=== PATIENT | male | born 1960 | race Hispanic/Latino ===

== ENCOUNTER 2016-10-06 00:19 | Emergency (ER) | payer MEDICAID ==
[2016-10-06 00:36] VITALS: BP 120/74; PULSE 78; TEMP 97.7; BMI 30.1
[2016-10-06 00:51] VITALS: RESP 16; O2SAT 98
--- NOTE | 2016-10-06 00:56 | ED PDOC ---
Arrival/HPI - General Chief Complaint: Back Pain Time Seen by Provider: 10/06/16 00:21 Historian: Patient - History of Present Illness Narrative History of Present Illness (Text): 10/06/16 00:53 Richie Bedolla is a 56 year old male who was brought to emergency department via EMS after being found sitting on a bench outside by police. Admits to drinking throughout the day. Pt denies suicidal or homicidal ideations. Denies any trauma or injury. Time/Duration: 1-3 hours Symptom Onset: Gradual Severity Level: Mild Activities at Onset: Light Context: Street Past Medical History - Provider Review Nursing Documentation Reviewed: Yes - Infectious Disease Hx of Infectious Diseases: None - Tetanus Immunization Tetanus Immunization: Unknown, Up to Date - Cardiac Hx Cardiac Disorders: Yes Hx Hypertension: Yes - Pulmonary Hx Respiratory Disorders: Yes Hx Asthma: Yes Hx Chronic Obstructive Pulmonary Disease (COPD): Yes - Neurological Hx Neurological Disorder: No - HEENT Hx HEENT Disorder: No - Renal Hx Renal Disorder: Yes Other/Comment: L nephrectomy 1990 - Endocrine/Metabolic Hx Endocrine Disorders: No - Hematological/Oncological Hx Blood Disorders: Yes Hx Hepatitis C: Yes - Integumentary Hx Dermatological Disorder: No - Musculoskeletal/Rheumatological Hx Musculoskeletal Disorders: No Hx Falls: No - Gastrointestinal Hx Gastrointestinal Disorders: No - Genitourinary/Gynecological Hx Genitourinary Disorders: No - Psychiatric Hx Psychophysiologic Disorder: Yes Hx Anxiety: Yes Hx Depression: Yes Hx Substance Use: No - Surgical History Hx Appendectomy: Yes Other/Comment: L nephrectomy, inguinal hernia repair - Anesthesia Hx Anesthesia: No Hx Anesthesia Reactions: No Hx Malignant Hyperthermia: No Family/Social History - Physician Review Nursing Documentation Reviewed: Yes Family/Social History: Other (nc) Smoking Status: using patc Hx Alcohol Use: Yes Hx Substance Use: No Allergies/Home Meds Allergies/Adverse Reactions: Allergies naproxen [From Naprosyn] Allergy (Verified 10/06/16 00:33) ANGIOEDEMA Home Medications: Home Meds Medication Instructions Recorded Confirmed Oxycodone HCl/Acetaminophen 1 tab PO Q8 10/06/16 10/08/16 [Percocet 10-325 mg Tablet] Review of Systems - Review of Systems Constitutional: absent: Fevers Eyes: Vision Changes Respiratory: absent: SOB, Cough Cardiovascular: absent: Chest Pain Gastrointestinal: Abdominal Pain. absent: Nausea, Vomiting Musculoskeletal: Back Pain (chronic), Neck Pain Neurological: Headache Psychiatric: absent: Suicidal Ideation Physical Exam Vital Signs Reviewed: Yes Vital Signs Temp Pulse Resp BP Pulse Ox 10/06/16 00:50 16 98 10/06/16 00:36 97.7 F 78 18 120/74 96 Temperature: Afebrile Blood Pressure: Normal Pulse: Regular Respiratory Rate: Normal Appearance: Positive for: Well-Appearing, Comfortable Pain Distress: None Mental Status: Positive for: Alert and Oriented X 3 - Systems Exam Head: Present: Atraumatic, Normocephalic Pupils: Present: PERRL Conjunctiva: Present: Normal Respiratory/Chest: Present: Clear to Auscultation, Good Air Exchange. No: Respiratory Distress, Accessory Muscle Use Cardiovascular: Present: Regular Rate and Rhythm, Normal S1, S2. No: Murmurs Abdomen: Present: Normal Bowel Sounds. No: Tenderness, Distention, Peritoneal Signs Neurological: Present: GCS=15, CN II-XII Intact, Speech Normal, Motor Func Grossly Intact, Normal Sensory Function Skin: Present: Warm, Dry, Normal Color. No: Rashes Psychiatric: Present: Alert, Oriented x 3, Normal Insight. No: Agitated, Suicidal Ideation, Homicidal Ideation, Delusional, Intoxicated Medical Decision Making ED Course and Treatment: Progress Notes: 10/06/16 00:58 Patient is ambulatory in the emergency department with a steady gait. - Scribe Statement The provider has reviewed the documentation as recorded by the Yaredibe Cherie Anand Provider Attestation: All medical record entries made by the Scribe were at my direction and personally dictated by me. I have reviewed the chart and agree that the record accurately reflects my personal performance of the history, physical exam, medical decision making, and the department course for this patient. I have also personally directed, reviewed, and agree with the discharge instructions and disposition. Disposition/Present on Arrival - Present on Arrival Any Indicators Present on Arrival: No History of DVT/PE: No History of Uncontrolled Diabetes: No Urinary Catheter: No History of Decub. Ulcer: No History Surgical Site Infection Following: None - Disposition Have Diagnosis and Disposition been Completed?: Yes Diagnosis: Homeless Disposition: HOME/ ROUTINE Disposition Time: 00:50 Condition: STABLE Additional Instructions: Please follow up with your doctor. Return to the ER for any other concerns. Referrals: [facility] at [facility] [place] [[place]] - Follow up with primary
== END 2016-10-06 01:24 | disposition home or self-care (01) ==
LOC: ED 00:19
DX: Z59.0 Homelessness (principal)

== ENCOUNTER 2017-05-26 12:47 | Emergency (ER) | payer MEDICAID ==
[2017-05-26 12:48] VITALS: BMI 22.8
[2017-05-26 13:17] VITALS: TEMP 98.1
[2017-05-26] MEDS ORDERED: Sodium Chloride 0.9% 500 ML IV STA (14:58)
[2017-05-26 15:13] VITALS: RESP 18; O2SAT 96
--- NOTE | 2017-05-26 15:16 | ED PDOC ---
Arrival/HPI - General Chief Complaint: Lower Extremity Problem/Injury Time Seen by Provider: 05/26/17 13:24 Historian: Patient - History of Present Illness Narrative History of Present Illness (Text): 05/26/17 56 yo male w/PMHx of COPD, HTN, alcohol abuse, L-spine radiculopathy, chronic lower back pain come in for evaluation of Left lower leg pain " for long time". Pt reports, for past few weeks, pain is severe , localized over left calf area, worse with weight bearing and associated with skin redness and swelling. Otherwise, pt denies fever, chills, CP, SOB, dyspnea, diaphoresis, palpitation, abd. pain, B/V, denies known trauma or injury, denies weakness, sensory or vascular deficits to B/L lEs. Ambulate to ED w/assistance of cane, not in any apparent distress. Past Medical History - Provider Review Nursing Documentation Reviewed: Yes - Travel History Have you recently traveled outside [place] w/in the past 3 mons?: No - Infectious Disease Hx of Infectious Diseases: None - Tetanus Immunization Tetanus Immunization: Unknown - Cardiac Hx Cardiac Disorders: Yes Hx Hypertension: Yes - Pulmonary Hx Respiratory Disorders: Yes Hx Asthma: Yes Hx Chronic Obstructive Pulmonary Disease (COPD): Yes - Neurological Hx Neurological Disorder: No - HEENT Hx HEENT Disorder: No - Renal Hx Renal Disorder: Yes Other/Comment: L nephrectomy 1990 - Endocrine/Metabolic Hx Endocrine Disorders: No - Hematological/Oncological Hx Blood Disorders: Yes Hx Hepatitis C: Yes - Integumentary Hx Dermatological Disorder: No - Musculoskeletal/Rheumatological Hx Falls: No - Gastrointestinal Hx Gastrointestinal Disorders: No - Genitourinary/Gynecological Hx Genitourinary Disorders: No - Psychiatric Hx Psychophysiologic Disorder: Yes Hx Anxiety: Yes Hx Depression: Yes Hx Substance Use: No - Surgical History Hx Appendectomy: Yes Other/Comment: L nephrectomy, inguinal hernia repair - Anesthesia Hx Anesthesia: Yes Hx Anesthesia Reactions: No Hx Malignant Hyperthermia: No Family/Social History - Physician Review Nursing Documentation Reviewed: Yes Family/Social History: No Known Family HX Smoking Status: Current Some Days Smoker Hx Alcohol Use: Yes Hx Substance Use: No Allergies/Home Meds Allergies/Adverse Reactions: Allergies naproxen [From Naprosyn] Allergy (Verified 05/26/17 13:09) ANGIOEDEMA Home Medications: Home Meds Medication Instructions Recorded Confirmed Oxycodone HCl/Acetaminophen 1 tab PO Q8 10/06/16 05/26/17 [Percocet 10-325 mg Tablet] Gabapentin [Neurontin] 600 mg PO DAILY 10/09/16 05/26/17 Meloxicam [Mobic] 15 mg PO DAILY 10/09/16 05/26/17 Montelukast [Singulair] 10 mg PO DAILY 10/09/16 05/26/17 Valsartan [Diovan] 160 mg PO DAILY 10/09/16 05/26/17 traZODone [Desyrel] 100 mg PO DAILY 10/09/16 05/26/17 Review of Systems - Review of Systems Constitutional: Normal Eyes: Normal ENT: Normal Respiratory: Normal Cardiovascular: Normal Gastrointestinal: Normal Genitourinary Male: Normal Musculoskeletal: Other (B/L legs pain, L>R) Skin: Cellulitis Neurological: Normal Endocrine: Normal Hemo/Lymphatic: Normal Psychiatric: Normal Physical Exam Vital Signs Reviewed: Yes Vital Signs Temp Pulse Resp BP Pulse Ox 05/26/17 20:21 64 18 143/71 96 05/26/17 17:29 65 18 135/71 96 05/26/17 15:12 69 18 138/79 96 05/26/17 13:15 98.1 F 74 17 141/85 95 Temperature: Afebrile Blood Pressure: Normal Pulse: Regular Respiratory Rate: Normal Appearance: Positive for: Well-Appearing, Non-Toxic, Comfortable Pain Distress: Moderate Mental Status: Positive for: Alert and Oriented X 3 - Systems Exam Head: Present: Normocephalic Conjunctiva: Present: Normal Mouth: Present: Moist Mucous Membranes. No: Drooling Neck: Present: Trachea Midline Respiratory/Chest: Present: Clear to Auscultation, Good Air Exchange. No: Respiratory Distress, Accessory Muscle Use Cardiovascular: Present: Regular Rate and Rhythm, Normal S1, S2. No: Murmurs Abdomen: Present: Normal Bowel Sounds. No: Tenderness, Distention, Peritoneal Signs Upper Extremity: Present: NORMAL PULSES. No: Cyanosis, Edema, Deformity Lower Extremity: Present: CALF TENDERNESS (Left), NORMAL PULSES, Normal ROM, Tenderness (Left lower leg), Swelling (L>R lower legs), Erythema (B/L lower legs , diffuse), Neurovascularly Intact, Capillary Refill < 2 s. No: Edema, Deformity Neurological: Present: GCS=15, Speech Normal, Normal Sensory Function, Norm Deep Tendon Reflexes Skin: Present: Warm, Dry, Normal Color Psychiatric: Present: Alert, Oriented x 3, Normal Insight, Normal Concentration Medical Decision Making ED Course and Treatment: 05/26/17 Pt OBS in ED for 6 hours and reports improvement in sx. On re-eval, pt is afebrile, hemodynamicaly stable. Ambulatory in ED with baseline gait. neck: SUpple. Lungs: CTA B/L, BS equal B/L. CVS: (+)S1S2, reg. Abd: benign. B/L LEs: mild edema to lower legs appears chronic ( recorded on previous visits 6-7 months ago), B/L mild erythema likely secondary to PVD. FAROM, no neurovascular deficits. Neurologicaly intact. Case discussed with ED attending DR. Hester, patient was evaluated by ED attending. Blodo work review, Doppler US of LLE (-) DVT. Pt has clinical findings c/w B/L LEs PVD, venous stasis , unlikely cellulitis ( no leukocytosis, B/L in appearens), No evidence of DTV of LLE. As per , discharge with outpt f/u recommend at this time. Results review and discussed with pt. Pt understand and agrees with outpt f/u now. - Lab Interpretations Microbiology Results: Microbiology Results 05/26/17 16:40 Blood Blood Culture - Preliminary NO GROWTH AFTER 24 HOURS 05/26/17 16:15 Blood Blood Culture - Preliminary NO GROWTH AFTER 24 HOURS Lab Results: 05/26/17 16:15 05/26/17 16:15 Lab Results 05/26/17 16:15: Sodium 142, Potassium 4.2, Chloride 104, Carbon Dioxide 29, Anion Gap 13, BUN 8, Creatinine 0.8, Est GFR ( Amer) > 60, Est GFR (Non- Af Amer) > 60, Random Glucose 95, Calcium 8.8, Total Bilirubin 0.4, AST 21, ALT 24, Alkaline Phosphatase 42, Total Protein 6.5, Albumin 3.5, Globulin 3.0, Albumin/Globulin Ratio 1.2 05/26/17 16:15: WBC 9.4, RBC 4.15, Hgb 12.7 L, Hct 39.6 L, MCV 95.4, MCH 30.6, MCHC 32.1, RDW 13.7, Plt Count 189, MPV 9.6, Gran % 58.4, Lymph % (Auto) 26.8, [place] % (Auto) 10.4 H, Eos % (Auto) 3.8, Baso % (Auto) 0.6, Gran # 5.50, Lymph # 2.5, [place] # 1.0 H, Eos # 0.4, Baso # 0.06 - RAD Interpretation Radiology Orders: 05/26/17 13:24 DUPLEX LOWER EXTRM VEIN LEFT [US] Stat - Medication Orders Current Medication Orders: Discontinued Medications Gabapentin (Neurontin) 300 mg PO STAT STA PRN Reason: Protocol Stop: 05/26/17 16:56 Last Admin: 05/26/17 18:34 Dose: 300 mg Sodium Chloride (Sodium Chloride 0.9%) 500 mls @ 999 mls/hr IV .Q31M STA Stop: 05/26/17 15:28 Last Admin: 05/26/17 16:20 Dose: 999 mls/hr eMAR Start Stop Document 05/26/17 16:20 EQ (Rec: 05/26/17 16:20 [place] [facility] [id number] Intravenous Solution Start Date 05/26/17 Start Time 16:20 Vancomycin HCl (Vancomycin 1gm) 1 gm in 250 mls @ 167 mls/hr IVPB STAT STA PRN Reason: Protocol Stop: 05/26/17 18:17 Last Admin: 05/26/17 18:33 Dose: 167 mls/hr eMAR Start Stop Document 05/26/17 18:33 EQ (Rec: 05/26/17 18:34 EQ [facility] [id number][place] Intravenous Solution Start Date 05/26/17 Start Time 18:33 Ketorolac Tromethamine (Toradol) 30 mg IVP STAT STA Stop: 05/26/17 15:00 Last Admin: 05/26/17 16:20 Dose: 30 mg MAR Pain Assessment Document 05/26/17 16:20 EQ (Rec: 05/26/17 16:21 EQ [facility] [id number][place] Pain Reassessment Is this a pain reassessment? No Sleep Is patient sleeping during reassessment? No Presence of Pain Presence of Pain Yes Pain Scale Used Pain Scale Used Numeric IVP Administration Document 05/26/17 16:20 EQ (Rec: 05/26/17 16:21 EQ [facility] [id number]) Charges for Administration # of IVP Administrations 1 Methylprednisolone (Solu-Medrol) 125 mg IVP STAT STA Stop: 05/26/17 16:50 Last Admin: 05/26/17 18:24 Dose: 125 mg IVP Administration Document 05/26/17 18:24 EQ (Rec: 05/26/17 18:[address] [facility] [id number]) Charges for Administration # of IVP Administrations 1 Disposition/Present on Arrival - Present on Arrival Any Indicators Present on Arrival: No History of DVT/PE: No History of Uncontrolled Diabetes: No Urinary Catheter: No History of Decub. Ulcer: No History Surgical Site Infection Following: None - Disposition Have Diagnosis and Disposition been Completed?: Yes Diagnosis: PVD (peripheral vascular disease), Cellulitis, Lumbar radiculopathy Disposition: HOME/ ROUTINE Disposition Time: 19:11 Patient Plan: Discharge Condition: STABLE Discharge Instructions (ExitCare): Cellulitis (ED), Peripheral Vascular Disease (ED), Lumbar Radiculopathy (ED) Additional Instructions: TAKE MEDICATION PRESCRIBED FOLLOW UP WITH PMD IN 1-2 DAYS FOR RE-EVALUATION. RETURN TO ED IF ANY WORSENING OR NEW CHANGES. Prescriptions: Sulfamethoxazole/Trimethoprim [Bactrim DS 800 mg-160 mg] 1 tab PO BID #14 tab Referrals: Adri Ruelas MD [Primary Care Provider] - Follow up with primary Forms: [employer] (Chinese)
--- NOTE | 2017-05-26 16:17 | US ---
PROCEDURE: Left lower extremity venous US HISTORY: Leg pain and swelling. Evaluate for DVT. PHYSICIAN(S): Richie Welsh MD. TECHNIQUE: Duplex sonography and color-flow Doppler with graded compression were used to evaluate the deep venous system of the left lower extremity. FINDINGS: The visualized deep venous system of the left lower extremity is sonographically normal and compressible. Normal wave forms and augmentation are seen. There is no sonographic evidence for deep venous thrombosis in the visualized segments of the left lower extremity. IMPRESSION: 1. No sonographic evidence for deep venous thrombosis in the visualized segments of the left lower extremity.
[2017-05-26 16:24] LABS: BASO # 0.06 K/mm3 (0.0-2.0); BASO % 0.6 % (0.0-3.0); EOS # 0.4 (0.0-0.7); EOS % 3.8 % (1.5-5.0); GRAN # 5.5 (1.4-6.5); GRAN % 58.4 % (50.0-68.0); HEMATOCRIT 39.6 % (42.0-52.0); LYMPH # 2.5 (1.2-3.4); LYMPH % 26.8 % (22.0-35.0); MEAN CELL VOLUME 95.4 fl (80.0-105.0); MEAN CORPUSCULAR HEMOGLOBIN 30.6 pg (25.0-35.0); MEAN CORPUSCULAR HGB CONC 32.1 g/dl (31.0-37.0); MEAN PLATELET VOLUME 9.6 fl (7.0-11.0); MONO % 10.4 % (1.0-6.0); RED CELL DISTRIBUTION WIDTH 13.7 % (11.5-14.5); WHITE BLOOD COUNT 9.4 10^3/ul (4.5-11.0)
[2017-05-26 16:38] LABS: ALB/GLOB RATIO 1.2 (1.1-1.8); ALKALINE PHOSPHATASE 42 U/L (38-126); ALT/SGPT 24 U/L (7-56); AST/SGOT 21 U/L (17-59); BILIRUBIN,TOTAL 0.4 mg/dL (0.2-1.3); BLOOD UREA NITROGEN 8 mg/dL (7-21); CALCIUM 8.8 mg/dL (8.4-10.5); CARBON DIOXIDE 29 mmol/L (21-33); CHLORIDE 104 mmol/L (98-107); GFR AFRICAN-AMERICAN > 60; GLUCOSE,RANDOM 95 mg/dL (70-110); POTASSIUM 4.2 mmol/L (3.6-5.0); SODIUM 142 mmol/L (132-148); TOTAL PROTEIN 6.5 g/dL (5.8-8.3)
[2017-05-26] MEDS ORDERED: Vancomycin 1gm in NS 250ml 1 GM/250 ML BAG IVPB STA (16:48)
[2017-05-26 20:22] VITALS: BP 143/71; PULSE 64
== END 2017-05-26 20:22 | disposition home or self-care (01) ==
LOC: ED 12:47
DX: I73.9 Peripheral vascular disease, unspecified (principal); M54.16 Radiculopathy, lumbar region; L03.116 Cellulitis of left lower limb; L03.115 Cellulitis of right lower limb; I10 Essential (primary) hypertension; F17.210 Nicotine dependence, cigarettes, uncomplicated
CPT/HCPCS: 80053; 85025; 87040; 93971; 96374; 96375; 99284; J1885; J2930; J7040

== ENCOUNTER 2017-07-31 19:06 | Emergency (ER) | payer MEDICAID ==
[2017-07-31 19:06] VITALS: BMI 22.8
[2017-07-31 19:30] VITALS: RESP 17
--- NOTE | 2017-07-31 20:31 | ED PDOC ---
Arrival/HPI - General Chief Complaint: Chest Pain Time Seen by Provider: 07/31/17 19:56 Historian: Patient - History of Present Illness Narrative History of Present Illness (Text): you were treated in the ED today for COPD/smoker, alcohol use, heroin use which you admitted to using recently past 2 days and now here with yellow productive cough, with difficulty breathing and generalized chest pain with dizziness/ lightheadedness, and you were otherwise without any nausea/vomiting/headache/ abdomen pain/numbness/tingling/loss of limb function/thoughts to harm yourself or others or hallucinations/travel/prior blood clots/prior cancer history. 07/31/17 20:28 Time/Duration: Other (2 days) Symptom Onset: Gradual Symptom Course: Unchanged Quality: Aching Severity Level: 2 Activities at Onset: Rest Context: Sitting Past Medical History - Provider Review Nursing Documentation Reviewed: Yes - Travel History Have you recently traveled outside [place] w/in the past 3 mons?: No - Infectious Disease Hx of Infectious Diseases: None - Tetanus Immunization Tetanus Immunization: Unknown - Cardiac Hx Cardiac Disorders: Yes Hx Hypertension: Yes - Pulmonary Hx Respiratory Disorders: Yes Hx Asthma: Yes Hx Chronic Obstructive Pulmonary Disease (COPD): Yes - Neurological Hx Neurological Disorder: No - HEENT Hx HEENT Disorder: No - Renal Hx Renal Disorder: Yes Other/Comment: L nephrectomy 1990 - Endocrine/Metabolic Hx Endocrine Disorders: No - Hematological/Oncological Hx Blood Disorders: Yes Hx Hepatitis C: Yes - Integumentary Hx Dermatological Disorder: No - Musculoskeletal/Rheumatological Hx Falls: No - Gastrointestinal Hx Gastrointestinal Disorders: No - Genitourinary/Gynecological Hx Genitourinary Disorders: No - Psychiatric Hx Psychophysiologic Disorder: Yes Hx Anxiety: Yes Hx Depression: Yes Hx Substance Use: No - Surgical History Hx Appendectomy: Yes Other/Comment: L nephrectomy, inguinal hernia repair - Anesthesia Hx Anesthesia: Yes Hx Anesthesia Reactions: No Hx Malignant Hyperthermia: No Family/Social History - Physician Review Nursing Documentation Reviewed: Yes Family/Social History: No Known Family HX Smoking Status: Current Some Days Smoker Hx Alcohol Use: Yes Hx Substance Use: No Allergies/Home Meds Allergies/Adverse Reactions: Allergies naproxen [From Naprosyn] Allergy (Verified 07/31/17 19:32) ANGIOEDEMA Home Medications: Home Meds Medication Instructions Recorded Confirmed Meloxicam [Mobic] 15 mg PO DAILY 10/09/16 07/31/17 Valsartan [Diovan] 160 mg PO DAILY 10/09/16 07/31/17 Review of Systems - Review of Systems Constitutional: Normal Eyes: Normal ENT: Normal Respiratory: SOB, Cough Cardiovascular: Chest Pain Gastrointestinal: Normal Genitourinary Male: Normal Musculoskeletal: Normal Skin: Normal Neurological: Normal Endocrine: Normal Hemo/Lymphatic: Normal Psychiatric: Normal Physical Exam Vital Signs Reviewed: Yes Vital Signs Temp Pulse Resp BP Pulse Ox 07/31/17 19:29 99.9 F H 86 17 163/82 H 95 Temperature: Afebrile Blood Pressure: Hypertensive Pulse: Regular Respiratory Rate: Normal Appearance: Positive for: Well-Appearing, Non-Toxic, Comfortable Pain Distress: None Mental Status: Positive for: Alert and Oriented X 3 - Systems Exam Head: Present: Atraumatic, Normocephalic Pupils: Present: PERRL Extroacular Muscles: Present: EOMI Conjunctiva: Present: Normal Ears: Present: Normal Mouth: Present: Moist Mucous Membranes Pharnyx: Present: Normal Nose (External): Present: Atraumatic Nose (Internal): Present: Normal Inspection Neck: Present: Normal Range of Motion Respiratory/Chest: Present: Clear to Auscultation, Good Air Exchange Cardiovascular: Present: Regular Rate and Rhythm Abdomen: No: Tenderness, Distention, Normal Bowel Sounds, Peritoneal Signs, Rebound, Guarding, McBurney's Point Tender, Rovsing's Sign Present, Hernias, Feeding Tubes, Ostomy Tubes, Mass/Organomegaly, Scars, Other Back: Present: Normal Inspection Upper Extremity: Present: Normal Inspection Lower Extremity: Present: Normal Inspection Neurological: Present: GCS=15, CN II-XII Intact, Speech Normal, Motor Func Grossly Intact Skin: Present: Warm, Normal Color Psychiatric: Present: Alert, Oriented x 3, Normal Insight, Normal Concentration Medical Decision Making ED Course and Treatment: you were treated in the ED today for COPD/smoker, alcohol use, heroin use which you admitted to using recently past 2 days and now here with sinus congestion, yellow productive cough, with difficulty breathing and generalized chest pain with dizziness/lightheadedness, and you were otherwise without any nausea/ vomiting/headache/abdomen pain/numbness/tingling/loss of limb function/thoughts to harm yourself or others or hallucinations/travel/prior blood clots/prior cancer history. Social: denies cocaine use. you were sitting up, comfortable, alert/oriented, good strength/sensation, no abdomen tenderness, pink skin, no fever temp 99.9, stable heart rate 86, stable breathing rate 17, excellent oxygen level 95% room air, elevated blood pressure 163/82 which we recommend followup primary care 2-3 days repeat and determine further treatment, no infection count on blood tests 6.2, stable blood levels hemoglobin/platelet 12.9 /167, stable chemistry, heart blood test negative, influenza negative, radiology chest xray mild vascular markings, ECG normal sinus rhythm, azithromycin done in the ED, counselled to smoking and using drugs/heroin, and discharged home. 1. recommend followup primary care 1-2 days to determine further care. 2. if any worsening pain, fever, chills, nausea, vomiting, any medical condition then return to the ED. 07/31/17 20:32 07/31/17 22:38 07/31/17 22:39 CXR mild vascular markings, corners limited. 07/31/17 23:20 ECG NSR Wells criteria negative 07/31/17 23:26 - Lab Interpretations Lab Results: 07/31/17 20:16 07/31/17 20:16 Lab Results 07/31/17 20:16: Influenza Typ A,B (EIA) Negative for flu a/b 07/31/17 20:16: Sodium 133, Potassium 3.6, Chloride 94 L, Carbon Dioxide 28, Anion Gap 15, BUN 13, Creatinine 0.9, Est GFR ( Amer) > 60, Est GFR (Non- Af Amer) > 60, Random Glucose 97, Calcium 9.1, Magnesium 1.7, Total Bilirubin 0.6, AST 32, ALT 32, Alkaline Phosphatase 51, Lactate Dehydrogenase 555, Total Creatine Kinase 143, Troponin I < 0.01, Total Protein 7.4, Albumin 4.1, Globulin 3.3, Albumin/Globulin Ratio 1.3 07/31/17 20:16: PT 11.3, INR 0.99, APTT 28.9 07/31/17 20:16: WBC 6.2 D, RBC 4.17, Hgb 12.9 L, Hct 39.2 L, MCV 94.0, MCH 30.9 , MCHC 32.9, RDW 13.7, Plt Count 167, MPV 9.6, Gran % 63.5, Lymph % (Auto) 18.8 L, [place] % (Auto) 16.4 H, Eos % (Auto) 0.5 L, Baso % (Auto) 0.8, Gran # 3.94, Lymph # (Auto) 1.2, [place] # (Auto) 1.0 H, Eos # (Auto) 0.0, Baso # (Auto) 0.05 I have reviewed the lab results: Yes - RAD Interpretation Radiology Orders: 07/31/17 20:26 CHEST TWO VIEWS (PA/LAT) [RAD] Stat Remelt Operator: ED Physician (cxr mild vascular markings) - EKG Interpretation Interpreted by ED Physician: Yes (NSR) Type: 12 lead EKG Disposition/Present on Arrival - Present on Arrival Any Indicators Present on Arrival: No History of DVT/PE: No History of Uncontrolled Diabetes: No Urinary Catheter: No History of Decub. Ulcer: No History Surgical Site Infection Following: None - Disposition Have Diagnosis and Disposition been Completed?: Yes Diagnosis: Bronchitis, Chest pain, Tobacco abuse counseling Disposition: HOME/ ROUTINE Disposition Time: 23:20 Patient Plan: Discharge Patient Problems: Current Active Problems Problem Status Onset Bronchitis Acute Chest pain Acute Tobacco abuse counseling Acute Condition: IMPROVED Discharge Instructions (ExitCare): Chest Pain (ED) Additional Instructions: you were treated in the ED today for COPD/smoker, alcohol use, heroin use which you admitted to using recently past 2 days and now here with sinus congestion, yellow productive cough, with difficulty breathing and generalized chest pain with dizziness/lightheadedness, and you were otherwise without any nausea/ vomiting/headache/abdomen pain/numbness/tingling/loss of limb function/thoughts to harm yourself or others or hallucinations/travel/prior blood clots/prior cancer history. Social: denies cocaine use. you were sitting up, comfortable, alert/oriented, good strength/sensation, no abdomen tenderness, pink skin, no fever temp 99.9, stable heart rate 86, stable breathing rate 17, excellent oxygen level 95% room air, elevated blood pressure 163/82 which we recommend followup primary care 2-3 days repeat and determine further treatment, no infection count on blood tests 6.2, stable blood levels hemoglobin/platelet 12.9 /167, stable chemistry, heart blood test negative, influenza negative, radiology chest xray mild vascular markings, ECG normal sinus rhythm, azithromycin done in the ED and take as directed for infection control, counselled to smoking and using drugs/heroin, and discharged home. 1. recommend followup primary care 1-2 days to determine further care. 2. if any worsening pain, fever, chills, nausea, vomiting, any medical condition then return to the ED. Prescriptions: Azithromycin [Z-Ricardo] 250 mg PO DAILY 5 Days #6 tab Referrals: Adri Ruelas MD [Primary Care Provider] - Follow up with primary Forms: [employer] ([place])
[2017-07-31 20:46] LABS: BASO # 0.05 K/mm3 (0.0-2.0); BASO % 0.8 % (0.0-3.0); EOS % 0.5 % (1.5-5.0); GRAN # 3.94 (1.4-6.5); GRAN % 63.5 % (50.0-68.0); HEMOGLOBIN 12.9 g/dL (14.0-18.0); LYMPH # 1.2 (1.2-3.4); LYMPH % 18.8 % (22.0-35.0); MEAN CORPUSCULAR HEMOGLOBIN 30.9 pg (25.0-35.0); MEAN CORPUSCULAR HGB CONC 32.9 g/dl (31.0-37.0); MEAN PLATELET VOLUME 9.6 fl (7.0-11.0); MONO % 16.4 % (1.0-6.0); RBC 4.17 10^6/uL (3.5-6.1); RED CELL DISTRIBUTION WIDTH 13.7 % (11.5-14.5); WHITE BLOOD COUNT 6.2 10^3/ul (4.5-11.0)
[2017-07-31 20:51] LABS: INR 0.99 (0.93-1.08); PARTIAL THROMBOPLASTIN TIME 28.9 Seconds (25.1-36.5); PROTHROMBIN TIME 11.3 SECONDS (9.4-12.5)
[2017-07-31 21:00] LABS: ALB/GLOB RATIO 1.3 (1.1-1.8); ALBUMIN 4.1 g/dL (3.0-4.8); ALT/SGPT 32 U/L (7-56); AST/SGOT 32 U/L (17-59); BLOOD UREA NITROGEN 13 mg/dL (7-21); CALCIUM 9.1 mg/dL (8.4-10.5); GFR AFRICAN-AMERICAN > 60; GFR NON-AFRICAN AMERICAN > 60; MAGNESIUM 1.7 mg/dL (1.7-2.2)
[2017-07-31 21:17] LABS: TROPONIN I < 0.01 ng/mL
[2017-07-31 23:44] VITALS: O2SAT 98
[2017-07-31 23:45] LABS: URINE BILIRUBIN NEGATIVE (NEGATIVE); URINE BLOOD NEGATIVE (NEGATIVE); URINE GLUCOSE (UA) NEGATIVE (NEGATIVE); URINE LEUKOCYTE ESTERASE NEGATIVE Leu/uL (NEGATIVE); URINE NITRATE NEGATIVE (NEGATIVE); URINE UROBILINOGEN 0.2 E.U./dL (<1 E.U./dL)
[2017-07-31 23:50] LABS: URINE APPEARANCE CLEAR (CLEAR); URINE COLOR YELLOW (YELLOW); URINE PROTEIN NEGATIVE mg/dL (<30 mg/dL)
[2017-08-01 00:38] LABS: BARBITURATES, UR NEGATIVE (NEGATIVE); BENZODIAZEPINES, UR NEGATIVE (NEGATIVE); OPIATES, UR NEGATIVE (NEGATIVE); PHENCYCLIDINE, UR NEGATIVE (NEGATIVE)
[2017-08-01 01:30] VITALS: BP 140/82; PULSE 88; TEMP 99.5
--- NOTE | 2017-08-01 09:45 | RAD ---
HISTORY: Chest pain. COMPARISON: 10/08/2016 TECHNIQUE: Chest PA and lateral FINDINGS: LUNGS: Increased interstitial markings, a stable/chronic finding. PLEURA: No significant pleural effusion identified. No pneumothorax apparent. CARDIOVASCULAR: No radiographic findings to suggest acute or significant cardiovascular disease. OSSEOUS STRUCTURES: No significant abnormalities. VISUALIZED UPPER ABDOMEN: Normal. OTHER FINDINGS: None. IMPRESSION: No active pulmonary disease. No significant interval change compared to the prior examination(s).
--- NOTE | 2017-08-01 16:48 | CARD ---
APPROVED REPORT EKG Measurement Heart [id number] <Conclusion> Normal sinus rhythm Normal ECG
== END 2017-08-01 01:30 | disposition home or self-care (01) ==
LOC: ED 19:06
DX: J40 Bronchitis, not specified as acute or chronic (principal); R07.9 Chest pain, unspecified; I10 Essential (primary) hypertension; F17.210 Nicotine dependence, cigarettes, uncomplicated

== ENCOUNTER 2017-09-27 | Observation (INO) | payer MEDICAID ==
--- NOTE | 2017-09-27 00:26 | ED PDOC ---
Arrival/HPI - General Chief Complaint: Shortness Of Breath Time Seen by Provider: 09/27/17 00:03 Historian: Patient - History of Present Illness Narrative History of Present Illness (Text): 09/27/17 00:23 Richie Bedolla is a 57 year old male smoker, whose past medical history includes , hypertension, substance abuse, asthma, COPD, traumatic brain injury, hepatitis C, and left nephrectomy, who presents to the Emergency department complaining of chest pain. Patient states he has been experiencing left-sided chest discomfort radiating down his left arm with associated shortness of breath , light-headedness, and some bilateral lower extremity swelling. Patient admits to using cocaine yesterday. Patient denies any fever, chills, nausea, vomiting, diarrhea, urinary symptoms, back pain, neck pain, headache, dizziness, or any other complaints. PMD: Dr. Gabbie Ruelas Time/Duration: Other (tonight) Symptom Onset: Gradual Symptom Course: Unchanged Activities at Onset: Light Context: Home Past Medical History - Provider Review Nursing Documentation Reviewed: Yes - Infectious Disease Hx of Infectious Diseases: None - Tetanus Immunization Tetanus Immunization: Unknown - Cardiac Hx Cardiac Disorders: Yes Hx Hypertension: Yes - Pulmonary Hx Respiratory Disorders: Yes Hx Asthma: Yes Hx Chronic Obstructive Pulmonary Disease (COPD): Yes - Neurological Hx Neurological Disorder: No - HEENT Hx HEENT Disorder: No - Renal Hx Renal Disorder: Yes Other/Comment: L nephrectomy 1990 - Endocrine/Metabolic Hx Endocrine Disorders: No - Hematological/Oncological Hx Blood Disorders: Yes Hx Hepatitis C: Yes - Integumentary Hx Dermatological Disorder: No - Musculoskeletal/Rheumatological Hx Falls: No - Gastrointestinal Hx Gastrointestinal Disorders: No - Genitourinary/Gynecological Hx Genitourinary Disorders: No - Psychiatric Hx Psychophysiologic Disorder: Yes Hx Anxiety: Yes Hx Depression: Yes Hx Substance Use: Yes (heroin. Last used 09/26/2017) - Surgical History Hx Appendectomy: Yes Other/Comment: L nephrectomy, inguinal hernia repair - Anesthesia Hx Anesthesia: Yes Hx Anesthesia Reactions: No Hx Malignant Hyperthermia: No Family/Social History - Physician Review Nursing Documentation Reviewed: Yes Family/Social History: Unknown Family HX Smoking Status: Current Some Days Smoker Hx Alcohol Use: Yes Frequency of alcohol use: Few days per week Hx Substance Use: Yes (heroin. Last used 09/26/2017) Allergies/Home Meds Allergies/Adverse Reactions: Allergies naproxen [From Naprosyn] Allergy (Verified 09/27/17 00:15) ANGIOEDEMA Home Medications: Home Meds Medication Instructions Recorded Confirmed No Known Home Med 09/27/17 09/27/17 Review of Systems - Physician Review All systems were reviewed & negative as marked: Yes - Review of Systems Constitutional: Normal. absent: Fevers Eyes: Normal ENT: Normal Respiratory: SOB. absent: Cough Cardiovascular: Chest Pain Gastrointestinal: Normal. absent: Abdominal Pain Genitourinary Male: Normal. absent: Dysuria, Frequency Musculoskeletal: Other (+bilateral lower extremity swelling). absent: Back Pain , Neck Pain Skin: Normal. absent: Rash Neurological: Normal. absent: Headache, Dizziness Endocrine: Normal Hemo/Lymphatic: Normal Psychiatric: Normal Physical Exam Vital Signs Reviewed: Yes Vital Signs Temp Pulse Resp BP Pulse Ox 09/27/17 00:09 98.3 F 82 18 144/93 H 96 Temperature: Afebrile Blood Pressure: Normal Pulse: Regular Respiratory Rate: Normal Appearance: Positive for: Well-Appearing, Non-Toxic, Comfortable Pain Distress: None Mental Status: Positive for: Alert and Oriented X 3 - Systems Exam Head: Present: Atraumatic, Normocephalic Pupils: Present: PERRL Extroacular Muscles: Present: EOMI Conjunctiva: Present: Normal Mouth: Present: Moist Mucous Membranes Neck: Present: Normal Range of Motion Respiratory/Chest: Present: Wheezes. No: Respiratory Distress, Accessory Muscle Use Cardiovascular: Present: Regular Rate and Rhythm, Normal S1, S2. No: Murmurs Abdomen: No: Tenderness, Distention, Peritoneal Signs Back: Present: Normal Inspection Upper Extremity: Present: Normal Inspection. No: Cyanosis, Edema Lower Extremity: Present: Edema (1+ pitting edema of the right lower extremity) Neurological: Present: GCS=15, CN II-XII Intact, Speech Normal Skin: Present: Warm, Dry, Normal Color. No: Rashes Psychiatric: Present: Alert, Oriented x 3, Normal Insight, Normal Concentration Medical Decision Making ED Course and Treatment: 09/27/17 00:23 Impression: 57 year old male complaining of left-sided chest discomfort, shortness of breath , light-headedness, and bilateral lower extremity swelling. Plan: -- US Duplex Lower Extremities -- EKG -- Chest X-ray -- Labs, cardiac enzymes, BNP -- Duoneb -- Reassess and disposition Prior Visits: Notes and results from previous visits were reviewed. Progress Notes: Reviewed EKG, NSR at 81 bpm. Septal infarct. Non-specific ST/T wave changes. 09/27/17 01:50 US Duplex Lower Extremities negative for DVT. 09/27/17 03:43 Chest X-ray reviewed, shows no acute processes. 09/27/17 03:58 Case discussed with medical field representative computing consultant, who is aware and agrees with plan. - Lab Interpretations Lab Results: 09/27/17 00:26 09/27/17 00:26 Lab Results 09/27/17 00:26: WBC 8.2 D, RBC 4.29, Hgb 13.4 L, Hct 39.9 L, MCV 93.0, MCH 31.2 , MCHC 33.6, RDW 13.8, Plt Count 181, MPV 9.6, ESR 15 09/27/17 00:26: PT 10.8, INR 0.95, APTT 27.1 09/27/17 00:26: Sodium 140, Potassium 3.4 L, Chloride 104, Carbon Dioxide 28, Anion Gap 11, BUN 11, Creatinine 0.9, Est GFR ( Amer) > 60, Est GFR (Non- Af Amer) > 60, Random Glucose 107, Calcium 9.3, Total Bilirubin 0.2, AST 21, ALT 20, Alkaline Phosphatase 45, Lactate Dehydrogenase 389, Total Creatine Kinase 89, Troponin I < 0.01, NT-Pro-B Natriuret Pep 99.4, Total Protein 6.8, Albumin 3.6, Globulin 3.2, Albumin/Globulin Ratio 1.1 I have reviewed the lab results: Yes - RAD Interpretation Radiology Orders: 09/27/17 00:28 DUPLEX LOWER EXTRM VEIN BILAT [US] Stat 09/27/17 00:34 CHEST PORTABLE [RAD] Stat Garbage Truck Helper: ED Physician, Radiologist - EKG Interpretation Interpreted by ED Physician: Yes Type: 12 lead EKG - Medication Orders Current Medication Orders: Discontinued Medications Acetaminophen (Tylenol 325mg Tab) 650 mg PO STAT STA Stop: 09/27/17 03:45 Albuterol/Ipratropium (Duoneb 3 Mg/0.5 Mg (3 Ml) Ud) 3 ml IH ONCE STA Stop: 09/27/17 00:31 Last Admin: 09/27/17 01:00 Dose: 3 ml Morphine Sulfate (Morphine) 2 mg IVP STAT STA Stop: 09/27/17 03:46 Nitroglycerin (Nitro-Bid 2% Oint) 1 ea TOP ONCE STA Stop: 09/27/17 03:45 Potassium Chloride (K-Dur 20 Meq Er Tab) 20 meq PO STAT STA Stop: 09/27/17 03:43 - Scribe Statement The provider has reviewed the documentation as recorded by the Wilber Peters Provider Scribe Attestation: All medical record entries made by the Scribe were at my direction and personally dictated by me. I have reviewed the chart and agree that the record accurately reflects my personal performance of the history, physical exam, medical decision making, and the department course for this patient. I have also personally directed, reviewed, and agree with the discharge instructions and disposition. Disposition/Present on Arrival - Present on Arrival Any Indicators Present on Arrival: No History of DVT/PE: No History of Uncontrolled Diabetes: No Urinary Catheter: No History of Decub. Ulcer: No History Surgical Site Infection Following: None - Disposition Have Diagnosis and Disposition been Completed?: Yes Diagnosis: Chest pain, COPD (chronic obstructive pulmonary disease) Disposition: HOSPITALIZED Disposition Time: 03:55 Patient Plan: Observation Patient Problems: Current Active Problems Problem Status Onset COPD (chronic obstructive pulmonary disease) Acute Chest pain Acute Condition: STABLE Discharge Instructions (ExitCare): Chest Pain (ED) Forms: [employer] ([place] Citizen)
[2017-09-27] MEDS ORDERED: Albuterol-Ipratrop 3 mg / 0.5 (3 ml) UD IH STA (00:30)
[2017-09-27 00:54] LABS: HEMOGLOBIN 13.4 g/dL (14.0-18.0); MEAN CORPUSCULAR HEMOGLOBIN 31.2 pg (25.0-35.0); MEAN CORPUSCULAR HGB CONC 33.6 g/dl (31.0-37.0); MEAN PLATELET VOLUME 9.6 fl (7.0-11.0); RBC 4.29 10^6/uL (3.5-6.1); RED CELL DISTRIBUTION WIDTH 13.8 % (11.5-14.5); WHITE BLOOD COUNT 8.2 10^3/ul (4.5-11.0)
[2017-09-27 00:58] LABS: ALB/GLOB RATIO 1.1 (1.1-1.8); ALBUMIN 3.6 g/dL (3.0-4.8); ALT/SGPT 20 U/L (7-56); AST/SGOT 21 U/L (17-59); BLOOD UREA NITROGEN 11 mg/dL (7-21); CALCIUM 9.3 mg/dL (8.4-10.5); GFR AFRICAN-AMERICAN > 60; GFR NON-AFRICAN AMERICAN > 60
[2017-09-27 01:09] LABS: B-TYPE NATRIURETIC PEPTIDE 99.4 pg/mL (0-450); TROPONIN I < 0.01 ng/mL
[2017-09-27 01:13] LABS: INR 0.95 (0.93-1.08); PARTIAL THROMBOPLASTIN TIME 27.1 Seconds (25.1-36.5); PROTHROMBIN TIME 10.8 SECONDS (9.4-12.5)
[2017-09-27] MEDS ORDERED: Albuterol-Ipratrop 3 mg / 0.5 (3 ml) UD ONE (01:17)
[2017-09-27] MEDS ORDERED: Potassium Chloride 20 mEq ER Tab PO STA (03:42)
[2017-09-27] MEDS ORDERED: Nitroglycerin 2% Ointment Foilpak UD TOP STA (03:44)
[2017-09-27] MEDS ORDERED: Morphine 4 mg/ml ISec IVP STA (03:45)
[2017-09-27 04:04] VITALS: O2SAT 97
--- NOTE | 2017-09-27 04:23 | CP.PCM.HP ---
History of Present Illness - History of Present Illness History of Present Illness: Christin Brock, PGY1, H&P for Dr Yarbrough: CC: chest pain 57 year old female with PMH HTN, substance abuse, asthma, COPD, traumatic brain injury, hepatitis C, and left nephrectomy, presents for left sided chest pain that started last afternoon. He describes it as sharp, shooting, locates it as left sided, has associated mild sob, denies nausea, vomiting, abdominal pain, diaphoresis, palpitations. Pt states that the pain radiates to the left arm with some associated tingling in fingers. Denies any fever, chills, diarrhea, vomiting, neck pain, trauma/exertional activities, dizziness, leg swelling. In ED, pt's vitals stable. EKG showed a new septal infarct, trop neg x1, normal BNP. K 3.4, repleted. 12 point ROS obtained and neg, except as per HPI. PMD: Dr. Gabbie Ruelas PMHx: HTN, substance abuse, asthma, COPD, TBI, and HepC(treated) PSHx: Left nephrectomy s/p trauma, Inguinal hernia repair SHx: 30 pack yr hx of smoking - quit 5 months ago, Admits to only social drinking, hx of cocaine and heroin (sniff) Famhx: Mom: AAA and breast ca Meds: See MAR Allergies: Naproxen Present on Admission - Present on Admission Any Indicators Present on Admission: No History of DVT/PE: No History of Uncontrolled Diabetes: No Urinary Catheter: No Decubitus Ulcer Present: No Review of Systems - Review of Systems All systems: reviewed and no additional remarkable complaints except Review of Systems: as per HPI Past Patient History - Infectious Disease Hx of Infectious Diseases: None - Tetanus Immunizations Tetanus Immunization: Unknown - Past Medical History & Family History Past Medical History?: Yes - Past Social History Smoking Status: Current Some Days Smoker - CARDIAC Hx Cardiac Disorders: Yes Hx Hypertension: Yes - PULMONARY Hx Respiratory Disorders: Yes Hx Asthma: Yes Hx Chronic Obstructive Pulmonary Disease (COPD): Yes - NEUROLOGICAL Hx Neurological Disorder: No - HEENT Hx HEENT Problems: No - RENAL Hx Chronic Kidney Disease: Yes Other/Comment: L nephrectomy 1990 - ENDOCRINE/METABOLIC Hx Endocrine Disorders: No - HEMATOLOGICAL/ONCOLOGICAL Hx Blood Disorders: Yes Hx Hepatitis C: Yes - INTEGUMENTARY Hx Dermatological Problems: No - MUSCULOSKELETAL/RHEUMATOLOGICAL Hx Falls: No - GASTROINTESTINAL Hx Gastrointestinal Disorders: No - GENITOURINARY/GYNECOLOGICAL Hx Genitourinary Disorders: No - PSYCHIATRIC Hx Psychophysiologic Disorder: Yes Hx Anxiety: Yes Hx Depression: Yes Hx Substance Use: Yes (heroin. Last used 09/26/2017) - SURGICAL HISTORY Hx Appendectomy: Yes Other/Comment: L nephrectomy, inguinal hernia repair - ANESTHESIA Hx Anesthesia: Yes Hx Anesthesia Reactions: No Hx Malignant Hyperthermia: No Meds Allergies/Adverse Reactions: Allergies Allergy/AdvReac Type Severity Reaction Status Date / Time naproxen [From Naprosyn] Allergy ANGIOEDEMA Verified 09/27/17 00:15 Physical Exam - Constitutional Appears: Non-toxic, No Acute Distress - Head Exam Head Exam: ATRAUMATIC, NORMOCEPHALIC - Eye Exam Eye Exam: EOMI. absent: Conjunctival injection, Nystagmus, Scleral icterus Pupil Exam: NORMAL ACCOMODATION, PERRL. absent: Fixed, Irregular, Unequal - ENT Exam ENT Exam: Mucous Membranes Moist - Neck Exam Neck exam: Positive for: Full Rom - Respiratory Exam Respiratory Exam: Clear to Auscultation Bilateral, NORMAL BREATHING PATTERN. absent: Accessory Muscle Use, Chest Wall Tenderness, Rhonchi, Wheezes, Respiratory Distress, Stridor - Cardiovascular Exam Cardiovascular Exam: RRR, +S1, +S2. absent: Irregular Rhythm, Systolic Murmur - GI/Abdominal Exam GI & Abdominal Exam: Normal Bowel Sounds, Soft. absent: Distended, Firm, Guarding, Organomegaly, Rebound, Rigid, Tenderness - Extremities Exam Extremities exam: Positive for: normal inspection. Negative for: calf tenderness, pedal edema - Back Exam Back exam: NORMAL INSPECTION - Neurological Exam Neurological exam: Alert, Oriented x3 - Psychiatric Exam Psychiatric exam: Normal Affect, Normal Mood - Skin Skin Exam: Dry, Normal Color, Warm Results - Vital Signs Recent Vital Signs: Last Vital Signs Temp 98.3 F 09/27/17 00:09 Pulse 89 09/27/17 04:03 Resp 18 09/27/17 04:03 BP 147/80 09/27/17 04:03 Pulse Ox 97 09/27/17 04:03 - Labs Result Diagrams: 09/27/17 00:26 09/27/17 00:26 Assessment & Plan - Assessment and Plan (Free Text) Assessment: 56 M with PMH of HTN, substance abuse, asthma, COPD, TBI, and HepC (treated) presents for chest pain: Chest pain: r/o ACS, vs GERD vs cocaine induced - NERI score 2: 8% all cause mortality - LE US shows no DVT - Echo 11/2015: EF 52.9%. Mild concentric LVH. - EKG: NSR at 81 bpm. Septal infarct. Non-specific ST/T wave changes. F/u serial EKGs - F/u urine drug screen - Chest X-ray showed no acute processes. - Trops Negative x1, serial trops - a1c, lipid panel, tsh - lipitor, norvasc, lisinopril - Tylenol prn - Cardiology consulted, Dr. Hayes HTN - currently stable - cont with norvasc and lisinopril COPD - No wheezing - duonebs - maintain 02 sat >88% Tobacco abuse - counselled pt and educated on harms - offered nicotine patch Hep C - treated, lfts wnl - continue to monitor DVT ppx: SCDs GI ppx: Protonix seen reviewed and discussed with attending - Date & Time Date: 09/27/17 Time: 07:07
[2017-09-27 05:45] VITALS: BMI 29.3
[2017-09-27] MEDS ORDERED: Albuterol-Ipratrop 3 mg / 0.5 (3 ml) UD IH PRN ×2 (06:00→06:55)
[2017-09-27] MEDS ORDERED: Pantoprazole 40 mg EC Tab PO SCH (06:00)
[2017-09-27 07:39] LABS: BARBITURATES, UR NEGATIVE (NEGATIVE); BENZODIAZEPINES, UR NEGATIVE (NEGATIVE); OPIATES, UR NEGATIVE (NEGATIVE); PHENCYCLIDINE, UR NEGATIVE (NEGATIVE)
--- NOTE | 2017-09-27 08:54 | RAD ---
HISTORY: chest pain COMPARISON: 07/31/2017 FINDINGS: LUNGS: No active pulmonary disease. PLEURA: No significant pleural effusion identified, no pneumothorax apparent. CARDIOVASCULAR: Normal. OSSEOUS STRUCTURES: No significant abnormalities. VISUALIZED UPPER ABDOMEN: Normal. OTHER FINDINGS: None. IMPRESSION: No active disease.
[2017-09-27 09:12] LABS: BASO # 0.04 K/mm3 (0.0-2.0); BASO % 0.7 % (0.0-3.0); EOS # 0.2 (0.0-0.7); EOS % 2.8 % (1.5-5.0); GRAN # 3.35 (1.4-6.5); HEMOGLOBIN 12.8 g/dL (14.0-18.0); LYMPH # 1.6 (1.2-3.4); LYMPH % 25.7 % (22.0-35.0); MEAN CELL VOLUME 93.6 fl (80.0-105.0); MEAN CORPUSCULAR HEMOGLOBIN 30.5 pg (25.0-35.0); MEAN CORPUSCULAR HGB CONC 32.6 g/dl (31.0-37.0); MEAN PLATELET VOLUME 9.6 fl (7.0-11.0); MONO % 15.8 % (1.0-6.0); RBC 4.2 10^6/uL (3.5-6.1); RED CELL DISTRIBUTION WIDTH 13.9 % (11.5-14.5); WHITE BLOOD COUNT 6.1 10^3/ul (4.5-11.0)
[2017-09-27 09:30] LABS: TROPONIN I < 0.01 ng/mL
[2017-09-27 09:32] LABS: LDL CHOLESTEROL 63 mg/dL (0-129)
[2017-09-27 09:36] LABS: ALB/GLOB RATIO 1.1 (1.1-1.8); ALBUMIN 3.2 g/dL (3.0-4.8); ALT/SGPT 25 U/L (7-56); AST/SGOT 22 U/L (17-59); BLOOD UREA NITROGEN 11 mg/dL (7-21); CALCIUM 8.9 mg/dL (8.4-10.5); GFR AFRICAN-AMERICAN > 60; GFR NON-AFRICAN AMERICAN > 60; HDL CHOLESTEROL 47 mg/dL (29-60)
[2017-09-27] MEDS ORDERED: Enoxaparin 40 mg Syringe SC SCH (10:00)
[2017-09-27 12:34] LABS: TROPONIN I < 0.01 ng/mL
--- NOTE | 2017-09-27 14:14 | CARD ---
APPROVED REPORT EKG Measurement Heart [id number] [id number] <Conclusion> Normal sinus rhythm Normal ECG
--- NOTE | 2017-09-27 14:17 | CARD ---
APPROVED REPORT EKG Measurement Heart [id number] DC 166P48 [id number] <Conclusion> Normal sinus rhythm Septal infarct, age undetermined Abnormal ECG
--- NOTE | 2017-09-27 14:20 | CARD ---
APPROVED REPORT EKG Measurement Heart [id number] [place] [id number] [id number] <Conclusion> Normal sinus rhythm Septal infarct, age undetermined Abnormal ECG
[2017-09-27 15:19] VITALS: PULSE 60
[2017-09-27 15:58] VITALS: BP 137/82; RESP 18; TEMP 98.5
[2017-09-27] MEDS ORDERED: Pneumococcal 23-Valent Vaccine IM ONE (17:36)
[2017-09-27] MEDS ORDERED: Arformoterol 15 mcg/2 ml Inh Sol IH SCH (20:00)
[2017-09-27] MEDS ORDERED: Budesonide 0.5 mg/2 ml Inhal Susp UD IH SCH (20:00)
--- NOTE | 2017-09-28 01:07 | CON ---
DATE: 09/27/2017 REASON FOR DICTATION: Covering Kin Hayes MD REASON FOR CONSULTATION: Chest pain, cardiac evaluation. BRIEF CLINICAL HISTORY: A 57-year-old male with past medical history significant for hypertension, tobacco abuse, substance abuse, came in with first left arm pain, then go into chest and go into the left leg; so, decided to come to the emergency room. He denies any dyspnea on exertion, walks a couple of miles, last walk yesterday, but no chest pain. PAST HISTORY: Significant for hypertension, on disability, taking antihypertensive medication called valsartan according to patient, strength unknown; also takes amlodipine, strength unknown. SOCIAL HISTORY: Smokes cigar, used to a smoker 2 pack a day, quit 8 to 9 years ago. He used to drink every now and then, also substance use, used heroine full bag 2 to 3 days ago. CURRENT MEDICATIONS: As per patient, valsartan, Singulair, Spiriva, amlodipine, albuterol inhaler and Percocet 10/325 every 6 p.r.n., also Xanax 1 to 2 mg every 6 hours. ALLERGIES: TO NAPROSYN. REVIEW OF SYSTEMS: As per HPI. PHYSICAL EXAMINATION: As follows: VITAL SIGNS: Temperature afebrile, heart rate , blood pressure . HEENT: PERRLA. Extraocular muscles intact. NECK: Supple. No carotid bruit or thyromegaly. CHEST: Clear to auscultation. HEART: S1 and S2 regular. ABDOMEN: Soft. EXTREMITIES: Clubbing and cyanosis negative. LABORATORY DATA: Blood workup as follows: WBC 6.1, hemoglobin 12.8, hematocrit 39.3, platelet count 169. Chemistry shows sodium 141, potassium 4.8, chloride 108, carbon dioxide 26, anion gap of 12, BUN 11, creatinine 0.8. Troponin 0.01, negative. EKG showed no acute ST-T changes noted. Toxic screen positive for cocaine. IMPRESSION: Atypical chest pain, hypertension, substance abuse, tobacco abuse. RECOMMENDATION: Recommended echo to assess LV function. Lipid profile, TSH, hemoglobin A1c. Before the risk stratification, consider a stress test as outpatient. We will discuss with the patient and we will turn over care tomorrow to Kin Hayes MD. We will supplement potassium. We will order hemoglobin A1c and echo. If the CPK remains negative, can be discharged. Echo and stress test can be done as outpatient. We will follow with you. Nash Zee MD
--- NOTE | 2017-09-28 08:41 | US ---
HISTORY: Leg pain and swelling. Evaluate for DVT PHYSICIAN(S): Richie Welsh MD. TECHNIQUE: Duplex sonography and color-flow Doppler with graded compression were used to evaluate the deep venous systems of both lower extremities. FINDINGS: The visualized deep venous systems of both lower extremities are sonographically normal and compressible. Normal wave forms and augmentation are seen. There is no sonographic evidence for deep venous thrombosis in the visualized segments of both lower extremities. IMPRESSION: No sonographic evidence for deep venous thrombosis in the visualized segments of both lower extremities.
== END 2017-09-27 18:04 | disposition home or self-care (01) ==
LOC: ED → ERH 03:59 → 2RNO 05:05
PROVIDERS: ADMIT Internal Medicine; ATTEND Internal Medicine
DX: R07.89 Other chest pain (principal); J44.9 Chronic obstructive pulmonary disease, unspecified; I12.9 Hypertensive chronic kidney disease with stage 1 through stage 4 chronic kidney disease, or unspecified chronic kidney disease; N18.9 Chronic kidney disease, unspecified; B19.20 Unspecified viral hepatitis C without hepatic coma; F17.290 Nicotine dependence, other tobacco product, uncomplicated; F19.10 Other psychoactive substance abuse, uncomplicated; Z90.5 Acquired absence of kidney; Z23 Encounter for immunization
CPT/HCPCS: 71045; 80053; 80061; 80324; 80345; 80346; 80349; 80353; 80358; 80361; 82550; 83036; 83615; 83735; 83880; 83992; 84100; 84443; 84484; 85025; 85027; 85610; 85651; 85730; 90471; 90732; 93005; 93970; 94640; 96374; 99285; G0378; J1650; J2270

== ENCOUNTER 2018-03-06 06:56 | Emergency (ER) | payer MEDICAID ==
[2018-03-06 06:56] VITALS: BMI 29.3
[2018-03-06] MEDS ORDERED: Ipratropium 0.02% Inhal Soln (0.5 mg/2.5 ml) UD IH STA (07:44)
[2018-03-06] MEDS ORDERED: DiphenhydrAMINE 50 mg/ml Inj IVP STA (07:44)
--- NOTE | 2018-03-06 08:11 | ED PDOC ---
Arrival/HPI - General Chief Complaint: Bite Time Seen by Provider: 03/06/18 07:21 Historian: Patient - History of Present Illness Narrative History of Present Illness (Text): 03/06/18 08:07 A 57 year old male, whose past medical history includes hyperlipidemia, diabetes, continued cigarette smoking, and one solitary kidney, presents to the emergency department s/p attacked by a swarm of bees since yesterday. Patient reports localized swelling and redness to bitten area as well as surge like or flushed feeling. Patient denies any throat tightness, tongue/lip heaviness or swelling, or any other complaints. Time/Duration: Other (yesterday) Symptom Onset: Sudden Activities at Onset: Light Context: Home Past Medical History - Provider Review Nursing Documentation Reviewed: Yes - Infectious Disease Hx of Infectious Diseases: None - Tetanus Immunization Tetanus Immunization: Unknown - Cardiac Hx Cardiac Disorders: Yes Hx Hypertension: Yes - Pulmonary Hx Respiratory Disorders: Yes Hx Asthma: Yes Hx Chronic Obstructive Pulmonary Disease (COPD): Yes - Neurological Hx Neurological Disorder: No - HEENT Hx HEENT Disorder: No - Renal Hx Renal Disorder: Yes Other/Comment: L nephrectomy 1990 - Endocrine/Metabolic Hx Endocrine Disorders: No - Hematological/Oncological Hx Blood Disorders: Yes Hx Hepatitis C: Yes - Integumentary Hx Dermatological Disorder: No - Musculoskeletal/Rheumatological Hx Falls: No - Gastrointestinal Hx Gastrointestinal Disorders: No - Genitourinary/Gynecological Hx Genitourinary Disorders: No - Psychiatric Hx Psychophysiologic Disorder: Yes Hx Anxiety: Yes Hx Depression: Yes Hx Substance Use: Yes (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 Last used 09/26/2017) Allergies/Home Meds Allergies/Adverse Reactions: Allergies naproxen [From Naprosyn] Allergy (Verified 03/06/18 07:33) ANGIOEDEMA Home Medications: Home Meds Medication Instructions Recorded Confirmed ALPRAZolam [Xanax] 1 mg PO Q8H PRN 09/27/17 09/27/17 Acetaminophen/Oxycodone Hydr 1 tab PO Q6H PRN 09/27/17 09/27/17 [Percocet 10/325 mg Tab] Albuterol Sulfate 09/27/17 Singulair 09/27/17 Spiriva 09/27/17 Valsartan 09/27/17 amLODIPine 09/27/17 Review of Systems - Physician Review All systems were reviewed & negative as marked: Yes - Review of Systems ENT: absent: Other (No throat tightness, tongue/lip heaviness or swelling) Skin: Other (+swelling and redness to upper extremities, neck and ears) Physical Exam Vital Signs Reviewed: Yes Vital Signs Temp Pulse Resp BP Pulse Ox 03/06/18 09:53 98 F 75 19 113/68 98 03/06/18 07:29 98.3 F 72 18 147/91 H 96 Temperature: Afebrile Blood Pressure: Hypertensive Pulse: Regular Respiratory Rate: Normal Appearance: Positive for: Well-Appearing, Non-Toxic Pain Distress: None Mental Status: Positive for: Alert and Oriented X 3 - Systems Exam Head: Present: Atraumatic, Normocephalic Pupils: Present: PERRL Extroacular Muscles: Present: EOMI Conjunctiva: Present: Normal Ears: No: Other (No uvular drops or OP edema) Mouth: Present: Moist Mucous Membranes Neck: Present: Normal Range of Motion Respiratory/Chest: Present: Respiratory Distress (+lungs have course breath sounds with a decreased I:E ratio ) Cardiovascular: Present: Regular Rate and Rhythm, Normal S1, S2. No: Murmurs Abdomen: No: Tenderness, Distention, Peritoneal Signs Back: Present: Normal Inspection Upper Extremity: No: Cyanosis, Edema Lower Extremity: Present: Normal Inspection. No: Edema Neurological: Present: GCS=15, CN II-XII Intact, Speech Normal Skin: Present: Rashes (+wheal like rash on upper extremities, right ear, and right neck ), Erythematous (+significant small macular and patchy area of erythema to upper extremities, right ear and right neck), Other (+lesions have central umbilication). No: Warm, Dry, Diaphoretic, Induration, Hot, Cold, Pale , Laceration, Abscess, Abrasion Psychiatric: Present: Alert, Oriented x 3, Normal Insight, Normal Concentration Medical Decision Making ED Course and Treatment: 03/06/18 08:22 Impression: 57 year old male presenting to the emergency department s/p bee sting Differential Diagnosis included but are not limited to: mild allergic reaction , rule out anaphylaxis Plan: -- Benadryl -- Pepcid -- Atrovent -- Solumedrol -- Reassess and disposition Prior Visits: Notes and results from previous visits were reviewed. Progress Notes: 03/06/18 08:23 Patient will be discharged with same treatment. 03/06/18 10:21 all bites visbly less swollen /less erythematous, pt moving air well, w/ improved i/e ratio, deneis any oropahryngeal/mucosal /pulmonary symptoms. aill be discharged on antihistamines - Medication Orders Current Medication Orders: Discontinued Medications Diphenhydramine HCl (Benadryl) 25 mg IVP STAT STA Stop: 03/06/18 07:45 Last Admin: 03/06/18 08:00 Dose: 25 mg IVP Administration Document 03/06/18 08:00 [id number] for [facility] # of IVP Administrations 1 Famotidine (Pepcid) 20 mg IVP STAT STA Stop: 03/06/18 07:45 Last Admin: 03/06/18 08:00 Dose: 20 mg IVP Administration Document 03/06/18 08:00 [facility] (Rec: 03/06/18 08[facility]00 [id number] Charges for Administration # of IVP Administrations 1 Ipratropium [place] (Atrovent) 0.5 mg IH STAT STA Stop: 03/06/18 07:45 Last Admin: 03/06/18 08:00 Dose: 0.5 mg Methylprednisolone (Solu-Medrol) 125 mg IVP STAT STA Stop: 03/06/18 07:44 Last Admin: 03/06/18 08:00 Dose: 125 mg IVP Administration Document 03/06/18 08:00 [facility] (Rec: 03/06/18 08:00 [id number] Charges for Administration # of IVP Administrations 1 - Scribe Statement The provider has reviewed the documentation as recorded by the Wilber Lorenzo All medical record entries made by the Scribe were at my direction and personally dictated by me. I have reviewed the chart and agree that the record accurately reflects my personal performance of the history, physical exam, medical decision making, and the department course for this patient. I have also personally directed, reviewed, and agree with the discharge instructions and disposition. Disposition/Present on Arrival - Present on Arrival Any Indicators Present on Arrival: No History of DVT/PE: No History of Uncontrolled Diabetes: No Urinary Catheter: No History of Decub. Ulcer: No History Surgical Site Infection Following: None - Disposition Have Diagnosis and Disposition been Completed?: Yes Diagnosis: Wasp sting Disposition: HOME/ ROUTINE Disposition Time: 10:22 Patient Plan: Discharge Condition: IMPROVED Discharge Instructions (ExitCare): Allergy Antigen (By injection), Insect Bite or Sting (ED) Print Language: [place] Additional Instructions: Take the antiisamines as needed. Return for any signs of worsienng allergic reaction or infection (spreadnig tchy red rash, thorat/chest tightness/ lip/ tongue swelling etc.) Prescriptions: DiphenhydrAMINE [Benadryl] 25 mg PO Q6 #20 cap Famotidine [Pepcid] 20 mg PO BID PRN #10 tab PRN Reason: Itching / Pruritus Referrals: [facility] at [facility] [Outside] - Follow up with primary Forms: [employer] ([place])
[2018-03-06 09:54] VITALS: RESP 19; TEMP 98
[2018-03-06 10:34] VITALS: BP 123/52; PULSE 85; O2SAT 99
== END 2018-03-06 10:34 | disposition home or self-care (01) ==
LOC: ED 06:56
DX: T63.461A Toxic effect of venom of wasps, accidental (unintentional), initial encounter (principal); Y92.89 Other specified places as the place of occurrence of the external cause
CPT/HCPCS: 96374; 96375; 99284; J1200; J2930